=== PATIENT | male | born 1945 | race Caucasian/White ===

== ENCOUNTER 2025-05-28 09:07 | Outpatient (CLI) | payer MEDICARE, BC | END 2025-05-28 09:08 | disposition home or self-care (01) | LOC: BICRAD 09:07 | PROVIDERS: ATTEND Family Medicine | DX: M54.50 Low back pain, unspecified (principal); M54.6 Pain in thoracic spine; M47.814 Spondylosis without myelopathy or radiculopathy, thoracic region; M47.816 Spondylosis without myelopathy or radiculopathy, lumbar region | CPT/HCPCS: 72072; 72100; 81001 ==

== ENCOUNTER 2025-05-30 08:45 | Outpatient (CLI) | payer MEDICARE, BC | END 2025-05-30 08:46 | disposition home or self-care (01) | LOC: BICRAD 08:45 | PROVIDERS: ATTEND Family Medicine | DX: M25.552 Pain in left hip (principal) ==

== ENCOUNTER 2025-08-11 11:58 | Outpatient (CLI) | payer MEDICARE, BC | END 2025-08-11 11:59 | disposition home or self-care (01) | LOC: BICRAD 11:58 | PROVIDERS: ATTEND Family Medicine | DX: M25.572 Pain in left ankle and joints of left foot (principal) ==